=== PATIENT | female | born 1965 | race Caucasian/White ===

== ENCOUNTER 2018-01-22 11:41 | Emergency (ER) | payer OTHER ==
[2018-01-22] MEDS ORDERED: TETANUS/DIPHTHERIA/PERTUSSIS 0.5 ML SYRINGE IM ONE (12:06)
--- NOTE | 2018-01-22 12:35 | ED Physician Documentation ---
PD HPI UPPER EXT INJURY - Stated complaint Stated Complaint: HAND INJ/LAC - Chief complaint Chief Complaint: Ext Problem - History obtained from History obtained from: Patient - History of Present Illness Location: Other (Left Handed woman who is not up-to-date on tetanus had a trip and fall off a log today and punctured her left palm on a stick. No other injuries.) Review of Systems Constitutional: reports: Reviewed and negative Cardiac: reports: Reviewed and negative Respiratory: reports: Reviewed and negative PD PAST MEDICAL HISTORY - Past Medical History Past Medical History: No - Past Surgical History Past Surgical History: Yes Ortho: ACL reconstruction - Present Medications Home Medications: Ambulatory Orders Medication Instructions Recorded Confirmed No Known Home Medications [No 01/22/18 01/22/18 Known Home Medications] - Allergies Allergies/Adverse Reactions: Allergies Allergy/AdvReac Type Severity Reaction Status Date / Time acetaminophen [From Percocet] Allergy Unknown Verified 01/22/18 11:49 amoxicillin [From Augmentin] Allergy Unknown Verified 01/22/18 11:49 azithromycin [From Zithromax] Allergy Unknown Verified 01/22/18 11:49 clavulanic acid Allergy Unknown Verified 01/22/18 11:49 [From Augmentin] hydromorphone [From Dilaudid] Allergy Unknown Verified 01/22/18 11:49 oxycodone [From Percocet] Allergy Unknown Verified 01/22/18 11:49 - Social History Does the pt smoke?: No Smoking Status: Never smoker PD ED PE NORMAL - Vitals Vital signs reviewed: Yes - General General: Alert and oriented X 3, No acute distress - Extremities Extremities: No deformity, No tenderness to palpate, Other (On the left palm, proximal to the fifth digit, there is a V-shaped laceration measuring 3 cm total without neurovascular compromise. Good flexor tendon strength.) Results - Vitals Vitals: Vital Signs - 24 hr 01/22/18 01/22/18 11:44 11:47 Temperature 36.3 C L Heart Rate 68 Respiratory 17 Rate Blood Pressure 134/78 H O2 Saturation 99 Oxygen O2 Source Room air Procedures - Laceration (location) L hand Length in cm: 3 Wound type: Irregular, Into subcut fat, Contaminated (Thoroughly irrigated and debrided sharply.) Neurovascular status: Sensory intact, Motor intact, Vascular intact Anesthesia: Lidocaine 1% with epi Wound Preparation: Betadine, Irrigated copiously NS Skin layer closure: Nylon, Interrupted, Size #-0 - enter number (4-0), Sutures - enter # (7) Other: Tetanus booster given Complexity: Intermediate Departure - Departure Disposition: 01 Home, Self Care Clinical Impression: Laceration of left hand Qualifiers: Encounter type: initial encounter Foreign body presence: without foreign body Qualified Code(s): S61.412A - Laceration without foreign body of left hand, initial encounter Condition: Good Record reviewed to determine appropriate education?: Yes Instructions: ED Laceration Hand Comments: Keep the current dressing on for the first 48 hours, then he may remove it and wash briefly with soap and water. Come back for any signs of infection which would include: Redness, swelling, drainage, increased pain, or fevers. Follow-up with your physician in 14 days for suture removal. Your blood pressure was elevated today on check into the emergency department. This does not mean that you have hypertension, it is a common phenomenon to come to the emergency department and have elevated blood pressure. I recommend that you see your primary care physician within the week to have it rechecked when you are feeling better.
[2018-01-22 13:13] VITALS: BP 126/65
== END 2018-01-22 13:11 | disposition home or self-care (01) ==
LOC: ED 11:41
DX: S61.412A Laceration without foreign body of left hand, initial encounter (principal); W18.09XA Striking against other object with subsequent fall, initial encounter; R03.0 Elevated blood-pressure reading, without diagnosis of hypertension; Z23 Encounter for immunization
CPT/HCPCS: 12032; 90471; 99282; 99283